=== PATIENT | male | born 1955 | race Caucasian/White ===

== ENCOUNTER 2016-06-29 11:31 | Emergency (ER) | payer OTHER ==
[2016-06-29] MEDS ORDERED: DIPHENHYDRAMINE HCL 50 MG/1 ML VIAL ONE (13:20)
[2016-06-29] MEDS ORDERED: METOCLOPRAMIDE HCL 5 MG/ML 2ML VIAL ONE (13:20)
[2016-06-29] MEDS ORDERED: HYDROMORPHONE HCL 1 MG/ML SYRINGE ONE (13:20)
[2016-06-29] MEDS ORDERED: KETOROLAC TROMETHAMINE 60 MG/2 ML VIAL ONE (13:20)
== END 2016-06-29 13:41 | disposition home or self-care (01) ==
LOC: ED 11:31
DX: G43.909 Migraine, unspecified, not intractable, without status migrainosus (principal)
CPT/HCPCS: 99283 ×2; 96372 ×4; J1200; J1170; J2765; J1885